=== PATIENT | female | born 1975 | race Caucasian/White ===

== ENCOUNTER 2023-12-21 08:48 | Outpatient (REF) | payer MEDICAID, SELFPAY ==
[2023-12-21 09:06] LABS: MANUAL DIFF FLAG NO
[2023-12-21 09:10] LABS: Basophils Percent Auto 0.5 % (0-2); Eosinophils Absolute Auto 0.1 X10*3/uL (0.0-0.4); Hemoglobin 14.6 g/dl (12.0-16.0); Imm Gran Abs Auto 0.01 X10*3/uL (0.00-0.03); Imm Gran Pct Auto 0.2 % (0.0-0.4); Lymphocytes Absolute Auto 1.4 X10*3/uL (1.2-4.9); Lymphocytes Percent Auto 24.2 % (20-40); Mean Corpuscular HGB Conc 35.6 g/dl (31.0-35.0); Mean Corpuscular Hemoglobin 32.2 pg (27.0-33.0); Mean Corpuscular Volume 90.3 fL (80.0-98.0); Mean Platelet Volume 9.2 fL (9.4-12.3); Monocytes Absolute Auto 0.2 X10*3/uL (0.1-1.2); Monocytes Percent Auto 4.1 % (2-11); Neutrophils Absolute Auto 4.1 x10*3/uL (2.0-8.3); Platelet Count 288 X10*3/uL (160-400); Red Blood Count 4.54 X10*6/uL (4.20-5.50); Red Cell Distribution Width 11.9 % (11.0-16.0); White Blood Count 5.9 X10*3/uL (4.8-10.8)
[2023-12-21 09:20] LABS: Estimated Average Glucose 103 mg/dL; Hemoglobin A1C 116.7954 umol/L; Hemoglobin A1c % 5.2 % (<6.0); Total Hemoglobin (HGBA1C) 3477.9891 umol/L
[2023-12-21 09:54] LABS: Erythrocyte Sedimentation Rate 2 MM/HR (0-20)
[2023-12-21 10:06] LABS: Alanine Aminotransferase 19 U/L (0-31); Albumin Level 3.9 g/dL (3.5-5.0); Alkaline Phosphatase 60 U/L (39-117); Anion Gap 8 (12-20); Aspartate Amino Transferase 19 U/L (5-31); Bilirubin Total 0.5 mg/dL (0.0-1.0); Blood Urea Nitrogen 11 mg/dL (9-16); C Reactive Protein 0.19 mg/dL (< or = 0.50); Calcium 9.4 mg/dL (8.4-10.2); Carbon Dioxide 23 mmol/L (22-29); Chloride 112 mmol/L (96-108); Estimated Glomerular Filt Rate > 60; Glucose Fasting 95 mg/dL (60-99); Iron 110 mcg/dL (30-160); Magnesium 1.9 mg/dL (1.6-2.6); Percent Iron Saturation 38 % (15-50); Phosphorus 2.1 mg/dL (2.7-4.5); Potassium 3.9 mmol/L (3.3-5.1); Sodium 139 mmol/L (135-145); Total Iron Binding Capacity 286 mcg/dL (228-428); Total Protein 6.5 g/dL (6.5-8.0); Unsaturated Iron Binding 176 ug/dL
[2023-12-21 10:32] LABS: Parathyroid Hormone Intact 58.3 pg/mL (8.7-77.1)
[2023-12-21 10:38] LABS: Cortisol Random 19.8 ug/dL
[2023-12-21 10:45] LABS: Rheumatoid Factor < 13.0 IU/mL (<15.0)
[2023-12-21 10:48] LABS: Ferritin 27 ng/mL (10-250); Free T4 (Free Thyroxine) 0.79 ng/dL (0.71-1.85); Thyroid Stimulating Hormone 1.25 uIU/mL (0.32-4.0)
[2023-12-21 10:58] LABS: Folate 7.2 ng/mL (> or = 4.0); Vitamin B12 297 pg/mL (200-900)
[2023-12-23 02:13] LABS: Triiodothyronine T3 Free 3.3 pg/mL (2.3-4.2); Triiodothyronine T3 Total 124 ng/dL (76-181)
[2023-12-23 04:05] LABS: Thyroglobulin Antibodies <1 IU/mL (< or = 1); Thyroid Peroxidase Antibodies <1 IU/mL (<9)
[2023-12-23 14:04] LABS: Anti Nuclear Antibody Screen NEGATIVE (NEGATIVE)
[2023-12-23 16:48] LABS: Homocysteine 10.8 umol/L (<10.4)
[2023-12-26 15:13] LABS: Vitamin B6 3.3 ng/mL (2.1-21.7)
[2023-12-28 15:33] LABS: Vitamin B1 <6 nmol/L (8-30)
== END 2023-12-21 08:49 | disposition home or self-care (01) ==
LOC: HO.LAB 08:48
PROVIDERS: Visit Provider Psychiatry & Neurology Psychiatry
DX: F41.9 Anxiety disorder, unspecified (principal); F32.9 Major depressive disorder, single episode, unspecified; E03.9 Hypothyroidism, unspecified
CPT/HCPCS: 36415; 80053; 82306; 82533; 82607; 82728; 82746; 83036; 83090; 83540; 83735; 83970; 84100; 84207; 84425; 84439; 84443; 84480; 84481; 85025; 85652; 86038; 86140; 86376; 86431; 86800

== ENCOUNTER 2023-12-26 08:15 | Outpatient (RCR) | payer OTHER, SELFPAY ==
[2023-12-13 11:35] VITALS: BP 90/60; PULSE 68; TEMP 36.9; BMI 26.9
--- NOTE | 2023-12-13 13:02 | PC.ADMIT ---
Patient is a 48 year old female who was referred to [facility] by her medication prescriber d/t increased depression and anxiety sxs. She is taking a leave of absence from work. 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 Patient stated, When feeling better I would like to go back to teaching . 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 Patient is alert and oriented x4. Calm and cooperative. Her thoughts are clear and logical. She presented with depressed mood and anxious affect. She denied SI, No HI. She was given a copy of her safety plan if needed. Patient has a history of alcohol use last use was 3 years ago. She reports attending AA most days and has a sponsor. She denied any other substance use. Patient has a history of TMS treatments. Feels her medications are not working and stated her prescriber told her she is not able to think of other options in regards to medications thus looking for a second opinion. Patient reports she has been prescribed the following medications with the following side effects or she did not find them effective thus stopped the medication including Abilify-Akathesia, Lamotrigine-did not work, Clonidine-did not work, Clonazepam, Vraylar-did not end up taking as she feared she would get Akathisia, Latuda-drowsiness, propranolol-did not work, Quetiapine-drowsiness. Dr Jacob is aware.
--- NOTE | 2023-12-15 15:00 | HO.PHP ---
Client's case has been opened and reviewed in team.
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
--- NOTE | 2023-12-20 22:11 | HO.PHPPROGNO ---
Subjective Subjective Date of Service: 12/20/23 Reason For Visit: anxiety,depression,OCD,ADHD Interim History: Patient seen for follow-up. Tired. tired of being like this . Reports poor sleep last night, although says her sleep is generally good. Dealing with a lot of anxiety. Does not feel her medication is helping and is hoping we can consider changes. Ant has been at 20 mg for months now, was never felt to be particularly helpful. She has had a number of SSRI trials which were not well-tolerated, causing her jitteriness and GI sx, as well as some SGA all of which were poorly tolerated. She has not yet been on an SNRI, does not want Effexor because of possible activation and in fact provider wanted to start her on desvenlafaxine but refused because it's related to venlafaxine and Rachele heard terrible things about that medicaiton She is willing to try Cymbalta, and will plan to start at low dose. Will lower escitalopram to make room to start Cymbalta given sensitivity to serotonergic effects in kathy past. Amantadine for RLS from SGA which she continues on even though she is no longer on an SGA. She has [ hx of ADHD, but was unaware amantadine could help with this and does not feel it does so. Reviewed alcohol use. Reviewed recent lab work and waiting for pending results. Medication Compliance: Yes Side effects from medications: No Attending Groups: Yes Review of Systems Acute medical concerns: No Mental Status Exam Mental Status Exam Narrative: Alert, oriented, in no acute distress. Calm, cooperative, engaged. No psychomotor agitation or neurovegetative retardation. Eye contact maintained. Mood depressed, affect constricted. Speech normal. Thought process linear, coherent. Thought content related to stressors, transient hopelessness, denies SI or HI. No paranoia or delusional content elicited. No evidence of psychosis. Insight and judgment - fair but adequate. Diagnostics Vital Signs (24Hr): BMI result Body Mass Index 26.9 Assessment & Plan Assessment & Plan (1) EDGARDO (generalized anxiety disorder): Status: Acute Code(s): F41.1 - Generalized anxiety disorder (2) Other specified episodic mood disorder: Status: Acute Code(s): F39 - Unspecified mood [affective] disorder (3) Chronic post-traumatic stress disorder (PTSD): Status: Acute Code(s): F43.12 - Post-traumatic stress disorder, chronic (4) Alcohol dependence in remission: Status: Acute Code(s): F10.21 - Alcohol dependence, in remission Plan decrease escitalopram to 15 mg qd start duloxetine 20 mg qd-bid as tolerated continue buspirone 10 mg BID (consider titrating) continue amantadine 100 mg qd continue disulfarim 250 mg qd continue naltrexone 25-50 mg qd continue lorazepam 0.5 mg BID prn anxiety continue hydroxyzine 25 mg BID prn continue other medications: estradiol po, cromolyn Routine lab work ordered for AM EKG, UDS as indicated Continue to monitor Patient educated on: diagnosis, medication risk/benefits and substance abuse Informed Consent: understands Reason for contiued partial hosp. stay Substantial Risk for: inability to function and med/psych decompensation Certification I certify that partial hospital treatment is medically necessary due to the symptoms and problems resulting from the patient's mental illness and the failure to treat the patient at the partial hospital level of care would likely result in the patient requiring inpatient psychiatric care which could not be prevented at a less intensive level of care. Total time managing care of this patient today __30__ minutes. Discharge Plan Discharge Attending provider: Kailee Jacob Additional Instructions: Nory has an OP therapist, Nalini Maurer, in which her next scheduled appointment is December 27, 2023 at 12 PM in person. Nory has a med provider, Marilee Rose, in which her next scheduled appointment is on December 30, 2023 at 4:15 PM in person. Medications: New escitalopram oxalate 10 mg tablet 15 mg PO DAILY Qty: 20 0RF duloxetine 20 mg capsule, delayed rel sprinkle See Rx Instructions .ROUTE .COMPLEX Qty: 30 0RF Rx Instructions: start 1 capsule po daily in PM for 2-3 days then increase to 1 capsule po twice daily Continued buspirone 10 mg tablet 10 mg PO BID escitalopram oxalate 20 mg tablet 20 mg PO DAILY amantadine HCl 100 mg tablet 100 mg PO DAILY lorazepam 0.5 mg Tablet 0.5 mg PO BID PRN (Reason: Anxiety) hydroxyzine HCl 25 mg Tablet 25 mg PO BID PRN (Reason: Anxiety) No Action naltrexone 50 mg tablet 25 - 50 mg PO DAILY cromolyn 100 mg/5 mL concentrate 100 mg PO DAILY Rx Instructions: Take 5 ml in 8 oz glass of water. disulfiram 250 mg tablet 250 mg PO DAILY Patient Comments: Last took a few weeks ago. Patient stated medication is on back order. Pharmacy stated last picked up on 11/15/23 15 day supply. cholecalciferol (vitamin D3) [Vitamin D3] 25 mcg (1,000 unit) Capsule 25 mcg PO DAILY L norgest/e.estradiol-e.estrad [Simpesse] 0.15 mg-30 mcg (84)/10 mcg (7) Tablets,Dose Pack,3 Month 1 tab PO DAILY Stand Alone Forms: Patient Portal Discharge page Print Language: [place] Citizen
--- NOTE | 2023-12-26 20:59 | P.PNPSP_ITS ---
Subjective Subjective Date of Service: 12/26/23 Reason For Visit: anxiety,depression,OCD,ADHD Interim History: Patient seen for follow-up, anticipating discharge at the end of program today.? Reports no acute issues or concerns. Medication compliant, medications well- tolerated. Denies any adverse effects.? Mood is stable.? Denies any hopelessness or SI. Denies thoughts of harming self or others at this time. Denies any aggressive ideation or HI. Denies any paranoia or AH or VH. Sleep, appetite, energy stable. Alert, oriented, in no acute distress. Calm, cooperative. Mood stable, affect appropriate. Speech normal. Thought process linear, coherent, more goal- directed. Thought content related to stressors, future-oriented, denies any helplessness, hopelessness or SI.? No aggressive ideation or HI. No paranoia or delusional content elicited. No evidence of psychosis. Insight and judgment fair-good. Discharge from [facility] Continue regular medications Refills sent to pharmacy Will defer further medication management to outpatient provider *Safety plan reviewed *Discharge diagnoses, treatment course, discharge plan have been reviewed with patient (including medication regime, medication management, potential side effects) as well as treatment rationale were also revisited *Discharge paperwork signed and given to patient, copy sent for scanning to chart Mental Status Exam Mental Status Exam Narrative: Alert, oriented, in no acute distress. Calm, cooperative, engaged. No psychomotor agitation or neurovegetative retardation. Eye contact maintained. Mood depressed, affect constricted. Speech normal. Thought process linear, coherent. Thought content related to stressors, transient hopelessness, denies SI or HI. No paranoia or delusional content elicited. No evidence of psychosis. Insight and judgment - fair but adequate. Diagnostics Vital Signs (24Hr): BMI result Body Mass Index 26.9 Assessment & Plan Assessment & Plan (1) EDGARDO (generalized anxiety disorder): Status: Acute Code(s): F41.1 - Generalized anxiety disorder (2) Other specified episodic mood disorder: Status: Acute Code(s): F39 - Unspecified mood [affective] disorder Assessment and Plan: likely PDD vs MDD, recurrent r/o SIMD r/o other mood disorder (3) Chronic post-traumatic stress disorder (PTSD): Status: Acute Code(s): F43.12 - Post-traumatic stress disorder, chronic (4) Alcohol dependence in remission: Status: Acute Code(s): F10.21 - Alcohol dependence, in remission (5) Thiamine deficiency: Status: Acute Code(s): E51.9 - Thiamine deficiency, unspecified Assessment and Plan: ?relates to parasthesias, neuropathic complaints in extemities x4 Plan start thiamine 100 mg BID for 1-2 months, then continue QD Patient educated on: diagnosis, medication risk/benefits and substance abuse Informed Consent: understands Reason for contiued partial hosp. stay Substantial Risk for: stable for discharge Certification I certify that partial hospital treatment is medically necessary due to the symptoms and problems resulting from the patient's mental illness and the failure to treat the patient at the partial hospital level of care would likely result in the patient requiring inpatient psychiatric care which could not be prevented at a less intensive level of care. Total time managing care of this patient today _30___ minutes. Discharge Plan Discharge Attending provider: Kailee Jacob Additional Instructions: [facility] has an OP therapist, Nalini Maurer, in which her next scheduled appointment is December 27, 2023 at 12 PM in person. [facility] has a med provider, Marilee Rose, in which her next scheduled appointment is on December 30, 2023 at 4:15 PM in person. Medications: New buspirone 15 mg tablet 15 mg PO BID Qty: 30 0RF disulfiram 500 mg tablet 250 mg PO DAILY Qty: 15 0RF escitalopram oxalate 10 mg tablet 15 mg PO DAILY Qty: 30 0RF Rx Instructions: taper off as directed pregabalin 25 mg capsule 25 mg PO TID Qty: 30 0RF thiamine HCl (vitamin B1) 100 mg tablet 100 mg PO BID Qty: 60 1RF mecobalamin (vitamin B12) [B12 Active] 1,000 mcg tablet,chewable 1,000 mcg PO DAILY Qty: 30 1RF Continued amantadine HCl 100 mg tablet 100 mg PO DAILY cromolyn 100 mg/5 mL concentrate 100 mg PO DAILY Rx Instructions: Take 5 ml in 8 oz glass of water. lorazepam 0.5 mg Tablet 0.5 mg PO BID PRN (Reason: Anxiety) hydroxyzine HCl 25 mg Tablet 25 mg PO BID PRN (Reason: Anxiety) cholecalciferol (vitamin D3) [Vitamin D3] 25 mcg (1,000 unit) Capsule 25 mcg PO DAILY L norgest/e.estradiol-e.estrad [Simpesse] 0.15 mg-30 mcg (84)/10 mcg (7) Tablets,Dose Pack,3 Month 1 tab PO DAILY escitalopram oxalate 10 mg tablet 15 mg PO DAILY Qty: 20 0RF Rx Instructions: will continue to taper off as directed duloxetine 30 mg capsule, delayed rel sprinkle 30 mg PO BID Qty: 30 0RF Rx Instructions: will continue to titrate as tolerated Discontinued buspirone 10 mg tablet 10 mg PO BID escitalopram oxalate 20 mg tablet 20 mg PO DAILY disulfiram 250 mg tablet 250 mg PO DAILY Patient Comments: Last took a few weeks ago. Patient stated medication is on back order. Pharmacy stated last picked up on 11/15/23 15 day supply. No Action naltrexone 50 mg tablet 25 - 50 mg PO DAILY Stand Alone Forms: Patient Portal Discharge page Patient Education: Generalized Anxiety Disorder (GEN) Print Language: [place] Sor[place] Telehealth Telehealth Telehealth Platform: Other (please specify) Location of provider rendering services: other (private office) Location of patient: other ([facility])
== END 2023-12-26 23:59 | disposition home or self-care (01) ==
LOC: HO.PHPA 08:15
PROVIDERS: Visit Provider Psychiatry & Neurology Psychiatry
DX: F41.1 Generalized anxiety disorder (principal); F39 Unspecified mood [affective] disorder; F43.12 Post-traumatic stress disorder, chronic; F10.21 Alcohol dependence, in remission; Z79.899 Other long term (current) drug therapy
CPT/HCPCS: 90791; 90853